=== PATIENT | female | born 1940 | race Caucasian/White ===

== ENCOUNTER → 2021-02-18 | Outpatient (CLI) | payer OTHER | END | disposition home or self-care (01) | LOC: SHCH 16:38 | PROVIDERS: ATTEND Internal Medicine Cardiovascular Disease | DX: I08.1 Rheumatic disorders of both mitral and tricuspid valves (principal); R06.00 Dyspnea, unspecified; I48.91 Unspecified atrial fibrillation; E78.5 Hyperlipidemia, unspecified; R55 Syncope and collapse | CPT/HCPCS: 93306; 93356 ==

== ENCOUNTER 2023-02-22 12:02 | Observation (INO) | payer OTHER ==
[~2023-02-22] VITALS: Ht 167.6 cm; Wt 84.5 kg
[2023-02-22 12:47] LABS: BASOPHILS % (AUTO) 0.7 % (0.0-5.0); EOSINOPHILS % (AUTO) 1.7 % (0.0-8.0); HEMATOCRIT 41.6 % (36-48); LYMPHOCYTES % (AUTO) 22.6 % (21.0-51.0); MEAN CORPUSCULAR HEMOGLOBIN 29.1 pg (27.0-33.0); MEAN CORPUSCULAR HGB CONC 33.9 g/dL (32.0-36.0); MEAN CORPUSCULAR VOLUME 85.8 fL (79-99); MONOCYTES % (AUTO) 7.9 % (3.0-13.0); NEUTROPHILS % (AUTO) 66.9 % (40.0-77.0); PLATELET COUNT (AUTO) 174 K/uL (130-400); RED BLOOD CELL COUNT(AUTO) 4.85 MIL/uL (4.00-5.50); RED CELL DISTRIBUTION WIDTH 12.8 % (11.0-15.5); WHITE BLOOD COUNT (AUTO) 5.9 K/uL (4.8-10.8)
[2023-02-22 12:53] LABS: CREATININE 0.8 mg/dL (0.5-1.5); POTASSIUM 3.4 mmol/L (3.5-5.1)
[2023-02-22 12:58] LABS: ALBUMIN 4.1 g/dL (3.5-5.0); TOTAL PROTEIN, SERUM 7.2 g/dL (6.0-8.3)
[2023-02-22] MEDS ORDERED: ALPRAZOLAM 0.5 MG TABLET PO PRN (15:00)
[2023-02-22] MEDS ORDERED: ZOLPIDEM TARTRATE 5 MG TAB PO PRN (15:00)
[2023-02-22] MEDS ORDERED: GUAIFENESIN SUGAR-FREE 100 MG/5 ML UDCUP PO PRN (15:00)
[2023-02-22] MEDS ORDERED: NITROGLYCERIN 0.4 MG SL TAB SL PRN (15:00)
[2023-02-22] MEDS ORDERED: POLYETHYLENE GLYCOL 3350 17 GM POWD.PACK PO PRN (15:00)
[2023-02-22] MEDS ORDERED: LOPERAMIDE HCL 2 MG CAP PO PRN (15:00)
[2023-02-22] MEDS ORDERED: GUAIFENESIN-DM 200/20 MG 10 ML PO PRN (15:00)
[2023-02-22] MEDS ORDERED: ACETAMINOPHEN 325 MG TAB PO PRN ×2 (15:00)
[2023-02-22] MEDS ORDERED: DOCUSATE SODIUM 100 MG CAP PO PRN (15:00)
[2023-02-22] MEDS ORDERED: ONDANSETRON 4MG INJ IV PRN (15:00)
[2023-02-22] MEDS ORDERED: LACTULOSE 20 GM/30 ML UDCUP PO PRN (15:00)
[2023-02-22] MEDS ORDERED: DiphenhydrAMINE HCL 50 MG/ML VIAL IV PRN (15:00)
[2023-02-22] MEDS: INSULIN HUMULIN R 100 UNIT/ML 3ML SQ SCH ×2 (16:30→21:00)
[2023-02-22] MEDS ORDERED: BISA-151 PO (17:31)
[2023-02-22] MEDS ORDERED: AEC81 PO (17:31)
[2023-02-22] MEDS ORDERED: TORS20TA4 PO (17:31)
[2023-02-22] MEDS ORDERED: ATEN100T PO (17:31)
[2023-02-22] MEDS ORDERED: POTA-364 PO (17:31)
[2023-02-22] MEDS ORDERED: LOSA100T59 PO (17:31)
[2023-02-22] MEDS ORDERED: ALBUHFA IH (17:31)
[2023-02-22] MEDS ORDERED: CHOL400T4 PO (17:31)
[2023-02-22] MEDS ORDERED: ATOR20TA65 PO (17:31)
[2023-02-22 17:54] VITALS: BP 139/80
[2023-02-22] MEDS ORDERED: POTASSIUM CHLORIDE 10% ELIXIR 20 MEQ/15 ML UDCUP PO PRN (19:00)
[2023-02-22] MEDS ORDERED: POTASSIUM CHLORIDE 20MEQ/100ML 100 ML IV PRN (19:00)
[2023-02-22 19:06] VITALS: BP 136/80
[2023-02-22] MEDS ORDERED: CEFAZOLIN SODIUM 2 GM in 0.9%NACL 50ML 50 ML IV PRN (20:00)
[2023-02-22] MEDS ORDERED: CEFAZOLIN SODIUM 2 GM VIAL IVPB PRN (20:00)
[2023-02-22] MEDS: KCL 20 MEQ ERTAB PO PRN (20:23)
[2023-02-22] MEDS: FAMOTIDINE 20MG TAB PO SCH (20:23)
[2023-02-22] MEDS ORDERED: BISACODYL 5 MG TABLET.DR PO PRN (22:00)
[2023-02-22] MEDS: PHARMACY COMMUNICATION MISC SCH (22:30)
[2023-02-23] VITALS (9 sets, daily range): BP systolic 118–134; BP diastolic 60–89
[2023-02-23 03:48] LABS: BASOPHILS % (AUTO) 0.6 % (0.0-5.0); EOSINOPHILS % (AUTO) 2.9 % (0.0-8.0); HEMATOCRIT 37.4 % (36-48); LYMPHOCYTES % (AUTO) 27.9 % (21.0-51.0); MEAN CORPUSCULAR HEMOGLOBIN 29.2 pg (27.0-33.0); MEAN CORPUSCULAR HGB CONC 33.2 g/dL (32.0-36.0); MONOCYTES % (AUTO) 8.7 % (3.0-13.0); NEUTROPHILS % (AUTO) 59.7 % (40.0-77.0); PLATELET COUNT (AUTO) 155 K/uL (130-400); RED BLOOD CELL COUNT(AUTO) 4.25 MIL/uL (4.00-5.50); RED CELL DISTRIBUTION WIDTH 12.8 % (11.0-15.5); WHITE BLOOD COUNT (AUTO) 4.8 K/uL (4.8-10.8)
[2023-02-23 04:00] LABS: INR 1.03 (0.85-1.15); PROTHROMBIN TIME 11.2 SEC (9.6-11.6)
[2023-02-23 04:13] LABS: ALBUMIN 3.3 g/dL (3.5-5.0); BILIRUBIN,DIRECT 0.2 mg/dL (0.0-0.3); CREATININE 0.6 mg/dL (0.5-1.5); MAGNESIUM 1.8 mg/dL (1.80-2.40); POTASSIUM 3.8 mmol/L (3.5-5.1); THYROID STIMULATING HORMONE 0.69 uIU/mL (0.36-3.74)
[2023-02-23] MEDS: INSULIN HUMULIN R 100 UNIT/ML 3ML SQ SCH ×4 (06:29→19:35)
[2023-02-23] MEDS: FAMOTIDINE 20MG TAB PO SCH ×2 (08:54→19:30)
[2023-02-23] MEDS ORDERED: MAGNESIUM 2GM PREMIX 50ML 50 ML IV ONE (08:54)
[2023-02-23] MEDS: KCL 20 MEQ ERTAB PO PRN ×2 (08:55→11:58)
[2023-02-23] MEDS ORDERED: MAGNESIUM 2GM PREMIX 50ML 50 ML IV PRN (09:00)
[2023-02-23] MEDS ORDERED: BUPIVACAINE/PF 0.25% 10ML VIAL IJ ONE (15:52)
[2023-02-23] MEDS ORDERED: VANCOMYCIN 1G/250ML KIT 0 ML IV ONE (15:52)
[2023-02-23] MEDS ORDERED: LIDOCAINE HCL 1% MDV 50ML VIAL ONE (15:55)
[2023-02-23] MEDS ORDERED: MIDAZOLAM HCL 1 MG/ML 2ML VIAL ONE (16:15)
[2023-02-23] MEDS ORDERED: MEPERIDINE-PF 50 MG/ML SYG ONE (16:15)
[2023-02-23] MEDS ORDERED: CEFAZOLIN SODIUM 1 GM VIAL ONE (16:33)
[2023-02-23] MEDS ORDERED: TRAM50TA4 PO (17:21)
[2023-02-23] MEDS ORDERED: ACETAMINOPHEN WITH CODEINE 1 TAB TAB PO PRN (17:30)
[2023-02-23] MEDS ORDERED: ATORVASTATIN 20 MG TABLET ONE (19:27)
[2023-02-23] MEDS: ACETAMINOPHEN 500 MG TABLET PO PRN (19:30)
[2023-02-23] MEDS: PHARMACY COMMUNICATION MISC SCH (19:35)
[2023-02-23] MEDS ORDERED: ATORVASTATIN 20 MG TABLET PO SCH (21:00)
[2023-02-23] MEDS ORDERED: CHOLECALCIFEROL 10 MCG PO SCH (21:00)
[2023-02-24] MEDS: ACETAMINOPHEN 500 MG TABLET PO PRN (03:22)
[2023-02-24 03:34] VITALS: BP 146/83
[2023-02-24] MEDS: INSULIN HUMULIN R 100 UNIT/ML 3ML SQ SCH ×2 (03:36→11:30)
[2023-02-24 04:23] LABS: MAGNESIUM 2.2 mg/dL (1.80-2.40); POTASSIUM 4.7 mmol/L (3.5-5.1)
[2023-02-24] MEDS: FAMOTIDINE 20MG TAB PO SCH (08:02)
[2023-02-24 08:53] VITALS: BP 148/83
[2023-02-24 11:36] VITALS: BP 132/67
== END 2023-02-24 13:10 | disposition home or self-care (01) ==
LOC: EDH 12:02 → EDHIP 14:54 → 2AH 17:06
PROVIDERS: ADMIT Internal Medicine; ATTEND Internal Medicine
DX: I44.2 Atrioventricular block, complete (principal); I48.21 Permanent atrial fibrillation; I44.7 Left bundle-branch block, unspecified; E87.6 Hypokalemia; I11.0 Hypertensive heart disease with heart failure; I50.30 Unspecified diastolic (congestive) heart failure; E78.5 Hyperlipidemia, unspecified; Z96.653 Presence of artificial knee joint, bilateral; Z79.899 Other long term (current) drug therapy; Z95.0 Presence of cardiac pacemaker
CPT/HCPCS: 99285; 84443 ×2; 84484 ×2; 80053; 85025 ×2; 82948 ×6; 36415 ×3; 93005 ×2; 33207; 96374; 83036; 82550; 80076; 83735 ×2; 80048; 82140; 85610; 85730; 71045 ×2; 93306; 93356; 84145; 84132; 97161; G0378 ×45; C1786; C1898; J3475; J0690; J2250; J3490 ×2; J2175; 99156; 99157; J3370